=== PATIENT | female | born 1975 | race Caucasian/White ===

== ENCOUNTER 2020-07-11 13:18 | Emergency (ER) | payer OTHER ==
[2020-07-11 13:52] VITALS: BP 146/98; PULSE 59
[2020-07-11] MEDS ORDERED: Lidocaine 1% 10 ML MDV INJECT ONE (14:14)
[2020-07-11] MEDS ORDERED: Diphtheria,Pertussis(Acell),Tetanus Vaccine 0.5 ML Syringe IM ONE (14:19)
--- NOTE | 2020-07-11 14:19 | EDM.PDOC ---
ED HPI GENERAL MEDICAL PROBLEM - General Chief Complaint: Lower Extremity Injury/Pain Stated Complaint: FISH HOOK STUCK IN TOE Time Seen by Provider: 07/11/20 13:57 Source of Information: Reports: Patient, RN Notes Reviewed History Limitations: Reports: No Limitations - History of Present Illness INITIAL COMMENTS - FREE TEXT/NARRATIVE: Patient is a 44-year-old female who presents to the ED for evaluation of a fishhook stuck in her left great toe. At around 1 PM today patient was in a house, and there was a fishhook in the carpet, and it got embedded into her left great toe near the nail bed. She does remember the last time she has had any sort of tetanus vaccine. She denies any other sick-like symptoms, fever/chills, cough some shortness of breath, nausea/vomiting/diarrhea. She is not complaining of any numbness or tingling distal to the injury. Left Toe-Hailux Pain Score (Numeric/FACES): 5 - Related Data Allergies Allergy/AdvReac Type Severity Reaction Status Date / Time No Known Allergies Allergy Verified 03/01/16 16:51 Home Meds: Home Meds hydroCHLOROthiazide [Hydrochlorothiazide] 12.5 mg PO DAILY 07/11/20 [History] Past Medical History - Past Health History Medical/Surgical History: Denies Medical/Surgical History Cardiovascular History: Reports: Hypertension [employer] History: Reports: Dysfunctional Uterine Bleeding, - Past Surgical History Female Surgical History: Reports: Breast Reduction, D&C Social & Family History - Tobacco Use Smoking Status *Q: Never Smoker - Caffeine Use Caffeine Use: Reports: Coffee, Tea - Recreational Drug Use Recreational Drug Use: No Review of Systems - Review of Systems Review Of Systems: Comprehensive ROS is negative, except as noted in HPI. ED EXAM, GENERAL - Physical Exam Exam: See Below Exam Limited By: No Limitations General Appearance: Alert, WD/WN, No Apparent Distress Respiratory/Chest: No Respiratory Distress, Lungs Clear, Normal Breath Sounds, No Accessory Muscle Use, Chest Non-Tender Cardiovascular: Normal Peripheral Pulses, Regular Rate, Rhythm, No Murmur Peripheral Pulses: 2+: Dorsalis Pedis (L), Dorsalis Pedis (R) Extremities: Normal Range of Motion, Normal Capillary Refill, Other ([employer] stuck in left great toe, on the medial portion. There is approximately about three quarters of the fishhook that is sticking out of the left great toe, the suad is embedded within the medial left great toe.) Neurological: Alert, Oriented, Normal Cognition, No Motor/Sensory Deficits Psychiatric: Normal Affect, Normal Mood Skin Exam: Warm, Dry, Normal Color, No Rash ED TRAUMA EXTREMITY PROCEDURES - Foreign Body Removal Indication:: Fish hook stuck in medial Left great toe Consent Obtained: Patient Performing Doctor:: Karen Phillip V Anesthesia Type: Local (1% lidocaine 1ML) Findings:: the toe was cleaned with chlora-prep swab and numbed with 1% lidocaine. The fish hook was advanced to allow the suad to be visualized, and then the suad was removed and the fish hook was taken out of the patient's toe without complication. Complications:: No Course - Vital Signs Last Recorded V/S: Last Vital Signs Temp 98.8 F 07/11/20 13:50 Pulse 59 L 07/11/20 13:50 Resp 20 07/11/20 13:50 BP 146/98 H 07/11/20 13:50 Pulse Ox 97 07/11/20 13:50 - Orders/Labs/Meds Orders: Active Orders 24 hr Category Date Time Status Vaccines to be Administered [RC] PER UNIT ROUTINE Care 07/11/20 14:19 Active Meds: Medications Discontinued Medications Generic Name Dose Route Start Last Admin Trade Name Fresteven PRN Reason Stop Dose Admin Diphtheria/Tetanus/Acell Pertussis 0.5 ml 07/11/20 14:19 07/11/20 15:40 Adacel IM 07/11/20 14:20 0.5 ml .ONCE ONE Administration Lidocaine HCl 10 ml 07/11/20 14:14 07/11/20 15:41 Xylocaine 1% INJECT 07/11/20 14:15 10 ml ONETIME ONE Administration Departure - Departure Time of Disposition: 15:29 Disposition: Home, Self-Care 01 Condition: Good Clinical Impression: Fish hook injury of left lower leg Qualifiers: Encounter type: initial encounter Qualified Code(s): S89.92XA - Unspecified injury of left lower leg, initial encounter - Discharge Information *PRESCRIPTION DRUG MONITORING PROGRAM REVIEWED*: No *COPY OF PRESCRIPTION DRUG MONITORING REPORT IN PATIENT ARMEN: No Referrals: Jia Sheridan PA-C [Primary Care Provider] - Forms: ED Department Discharge Additional Instructions: You were evaluated in the ER today for the fishhook stuck in your left great toe. The area was numbed up, and the fishhook was removed successfully. You were updated with your tetanus booster today's visit. Please keep the wound clean and dry, watch for any signs of infection like redness, swelling, drainage from the wound site. Please return to the ER at any time if symptoms change or worsen. Sepsis Event Note (ED) - Evaluation Sepsis Screening Result: No Definite Risk - Focused Exam Vital Signs: Vital Signs Temp Pulse Resp BP Pulse Ox 07/11/20 13:50 98.8 F 59 L 20 146/98 H 97 - My Orders Last 24 Hours: My Active Orders 07/11/20 14:19 Vaccines to be Administered [RC] PER UNIT ROUTINE - Assessment/Plan Last 24 Hours: My Active Orders 07/11/20 14:19 Vaccines to be Administered [RC] PER UNIT ROUTINE
== END 2020-07-11 16:12 | disposition home or self-care (01) ==
LOC: JD.ED 13:18
DX: S90.452A Superficial foreign body, left great toe, initial encounter (principal); I10 Essential (primary) hypertension; Z23 Encounter for immunization; Z79.899 Other long term (current) drug therapy; W45.8XXA Other foreign body or object entering through skin, initial encounter; Y92.009 Unspecified place in unspecified non-institutional (private) residence as the place of occurrence of the external cause
CPT/HCPCS: 90471; 90715; 99283; J2001; 99282

== ENCOUNTER 2023-02-14 00:47 | Inpatient (IN) | payer OTHER ==
[2023-02-14] MEDS ORDERED: Ondansetron 4 MG/2 ML SDV IVPUSH ONE (00:59)
[2023-02-14] MEDS ORDERED: Sodium Chloride 0.9% 10 ML Syringe FLUSH PRN (00:59)
[2023-02-14] MEDS ORDERED: Sodium Chloride 0.9% 1,000 ML IV SCH (01:00)
[2023-02-14] MEDS ORDERED: HYDROmorphone 0.5 MG/0.5 ML Syringe IM ONE (01:18)
[2023-02-14 01:25] LABS: BASOPHILS ABSOLUTE AUTO 0.03 K/mm3 (0.01-0.08); BASOPHILS PERCENT AUTO 0.3 % (0.1-1.2); EOSINOPHILS ABSOLUTE AUTO 0.12 K/mm3 (0.04-0.36); EOSINOPHILS PERCENT AUTO 1.2 (0.7-5.8); HEMATOCRIT 44.3 % (34.1-44.9); HEMOGLOBIN 14.9 gm/dl (11.2-15.7); IMMATURE GRAN ABSOLUTE AUTO 0.01 K/mm3 (0.00-0.10); IMMATURE GRAN PERCENT AUTO 0.1 % (<=1.0); LYMPHOCYTES ABSOLUTE AUTO 2.02 K/mm3 (1.18-3.74); LYMPHOCYTES PERCENT AUTO 20.2 % (19.3-51.7); MEAN CORPUSCULAR HEMOGLOBIN 29.1 pg (25.6-32.2); MEAN CORPUSCULAR HGB CONC 33.6 g/dl (32.2-35.5); MEAN CORPUSCULAR VOLUME 86.5 fl (79.4-94.8); MEAN PLATELET VOLUME 9.7 fl (9.4-12.3); MONOCYTES ABSOLUTE AUTO 0.75 K/mm3 (0.24-0.36); MONOCYTES PERCENT AUTO 7.5 % (4.7-12.5); NEUTROPHILS ABSOLUTE AUTO 7.05 K/mm3 (1.56-6.13); NEUTROPHILS PERCENT AUTO 70.7 % (34.0-71.1); PLATELET COUNT,PLT 259 K/mm3 (182-369); RED BLOOD CELL COUNT 5.12 M/mm3 (3.98-5.22); WHITE BLOOD CELL COUNT,WBC 9.98 K/mm3 (3.98-10.04)
[2023-02-14] MEDS ORDERED: HYDROmorphone 0.5 MG/0.5 ML Syringe IVPUSH ONE ×2 (01:34→04:01)
[2023-02-14 01:37] LABS: APPEARANCE,URINE CLEAR (Clear); BILIRUBIN,URINE NEGATIVE (Negative); COLOR,URINE YELLOW (Yellow); GLUCOSE,URINE NEGATIVE (Negative); KETONES,URINE 1+ (Negative); LEUKOCYTE ESTERASE,URINE TRACE (Negative); NITRITE,URINE NEGATIVE (Negative); OCCULT BLOOD,URINE NEGATIVE (Negative); PH,URINE 8.5 (5.0-8.0); PROTEIN,URINE NEGATIVE (Negative); UROBILINOGEN,URINE 0.2 (0.2-1.0)
[2023-02-14 01:51] LABS: ALANINE AMINOTRANSFERASE,ALT 45 U/L (14-59); ALBUMIN 4.1 g/dl (3.4-5.0); ALKALINE PHOSPHATASE 76 U/L (46-116); ASPARTATE AMNIOTRANSFERASE,AST 28 U/L (15-37); BILIRUBIN TOTAL 0.5 mg/dL (0.2-1.0); BLOOD UREA NITROGEN,BUN 14 mg/dL (7-18); BUN/CREATININE RATIO 15.6 (14-18); C-REACTIVE PROTEIN <0.2 mg/dL (<1.0); CALCIUM 9.5 mg/dL (8.5-10.1); CARBON DIOXIDE,CO2 22 mEq/L (21-32); CHLORIDE,CL 103 mEq/L (98-107); CREATININE 0.9 mg/dL (0.55-1.02); EST CRCL DRUG DOSING (CG) 64.61 mL/min; ESTIMATED GFR 80 mL/min (>60); GLUCOSE RANDOM 112 mg/dL (70-99); LIPASE 140 U/L (73-393); MAGNESIUM 1.5 mg/dL (1.8-2.4); PROTEIN TOTAL,TP 8.1 g/dl (6.4-8.2); SODIUM,NA 138 mEq/L (136-145)
[2023-02-14 02:00] LABS: EPITHELIAL CELLS,URINE 0-5 /hpf (0-5); RBC,URINE NOT SEEN /hpf (0-5); WBC,URINE 0-5 /hpf (0-5)
[2023-02-14 02:01] LABS: AMORPHOUS SEDIMENT,URINE FEW /hpf (NOT SEEN); BACTERIA,URINE FEW /hpf (FEW); MUCUS,URINE NOT SEEN /hpf (FEW)
[2023-02-14] MEDS ORDERED: Lactated Ringers 1,000 ML IV ONE ×2 (03:50→14:45)
[2023-02-14] MEDS ORDERED: Piperacillin/Tazobactam 3.375 GM in Sodium Chloride 0.9% 100 ML IV ONE (03:59)
[2023-02-14] MEDS ORDERED: Naloxone 0.4 MG/ML SDV IVPUSH PRN (06:24)
[2023-02-14] MEDS ORDERED: Ondansetron 4 MG/2 ML SDV IVPUSH PRN (06:29)
[2023-02-14] MEDS ORDERED: D5 1/2 NS w/ 20 mEq/L KCl 1,000 ML IV SCH (06:30)
[2023-02-14] MEDS: Potassium Chloride 10 MEQ in Premix Bag 1 BAG IV SCH ×4 (06:51→10:47)
[2023-02-14] MEDS: HYDROmorphone 0.5 MG/0.5 ML Syringe IVPUSH PRN ×2 (06:56→09:36)
[2023-02-14] MEDS ORDERED: Piperacillin/Tazobactam 3.375 GM in Sodium Chloride 0.9% 100 ML IV SCH (10:00)
[2023-02-14] MEDS ORDERED: Piperacillin/Tazobactam 4.5 GM in Sodium Chloride 0.9% 100 ML IV SCH (10:00)
[2023-02-14] MEDS ORDERED: Ketorolac 30 MG/ML SDV IVPUSH PRN ×2 (10:15→10:19)
[2023-02-14] MEDS ORDERED: Lidocaine 1% with EPINEPHrine 1:100,000 20 ML MDV ONE (13:32)
[2023-02-14] MEDS ORDERED: Bupivacaine 0.5%/EPINEPHrine 1:200,000 50 ML MDV ONE (13:32)
[2023-02-14] MEDS ORDERED: Lidocaine 1% 4 ML ONE (13:41)
[2023-02-14] MEDS ORDERED: Rocuronium 50 MG/5 ML Vial ONE ×2 (13:41→14:34)
[2023-02-14] MEDS ORDERED: fentaNYL 100 MCG/2 ML SDV ONE (13:41)
[2023-02-14] MEDS ORDERED: Propofol 200 MG/20 ML SDV ONE ×2 (13:41→14:23)
[2023-02-14] MEDS ORDERED: Dexamethasone 4 MG/ML 5 ML MDV ONE (14:15)
[2023-02-14] MEDS ORDERED: Ondansetron 4 MG/2 ML SDV ONE (14:15)
[2023-02-14] MEDS ORDERED: Ketorolac 30 MG/ML SDV ONE (14:15)
[2023-02-14] MEDS ORDERED: ceFAZolin 2 GM Vial ONE (14:17)
[2023-02-14] MEDS ORDERED: ePHEDrine 50 MG/ML SDV ONE (14:17)
[2023-02-14] MEDS ORDERED: HYDROmorphone 0.5 MG/0.5 ML Syringe ONE ×2 (14:24→14:38)
[2023-02-14] MEDS ORDERED: Sugammadex Sodium 200 MG/2 ML VIAL ONE (14:38)
[2023-02-14] MEDS ORDERED: fentaNYL 100 MCG/2 ML SDV IVPUSH PRN (15:42)
[2023-02-14] MEDS ORDERED: HYDROmorphone 0.5 MG/0.5 ML Syringe IVPUSH PRN (15:42)
[2023-02-14 17:15] VITALS: BP 127/72
[2023-02-14 18:53] VITALS: PULSE 86
== END 2023-02-14 18:30 | disposition home or self-care (01) | DRG 342 ==
LOC: JD.ED 00:47 → JD.MS 04:21
PROVIDERS: ADMIT Surgery; ATTEND Surgery
PROC: 0DTJ4ZZ Resection of Appendix, Percutaneous Endoscopic Approach (ICD-10-PCS; principal; 2023-02-14)
DX: K35.30 Acute appendicitis with localized peritonitis, without perforation or gangrene (principal); E87.20 Acidosis, unspecified; E87.5 Hyperkalemia; I10 Essential (primary) hypertension; E87.6 Hypokalemia; E83.42 Hypomagnesemia; Z98.890 Other specified postprocedural states
CPT/HCPCS: 36415; 74177; 74177-26; 80053; 81001; 83605; 83690; 83735; 84702; 85025; 86140; 96361; 96365; 96375; 96376; 99285-25; J0690; J1100; J1170; J1885; J2405; J2543; J2704; J3010; J3480; J3490; J7030; J7120

== ENCOUNTER 2024-12-07 16:14 | Emergency (ER) | payer OTHER ==
[2024-12-07] MEDS: Lactated Ringers 1,000 ML IV ONE (18:01)
[2024-12-07] MEDS: Ondansetron 4 MG/2 ML SDV IVPUSH ONE (18:01)
[2024-12-07 19:01] VITALS: BP 133/96; PULSE 87
== END 2024-12-07 19:04 | disposition home or self-care (01) ==
LOC: JD.ED 16:14
DX: K52.9 Noninfective gastroenteritis and colitis, unspecified (principal); I10 Essential (primary) hypertension; Z79.899 Other long term (current) drug therapy
CPT/HCPCS: 87428; 96361; 96374; 99284; J2405; J7120; 99283

== ENCOUNTER 2025-03-01 23:16 | Emergency (ER) | payer OTHER ==
[2025-03-01 23:41] LABS: BASOPHILS ABSOLUTE AUTO 0.1 K/mm3 (0.0-0.2); BASOPHILS PERCENT AUTO 0.9 % (0.0-1.0); EOSINOPHILS ABSOLUTE AUTO 0.2 K/mm3 (0.0-0.4); EOSINOPHILS PERCENT AUTO 3.2 % (0.0-6.0); HEMATOCRIT 46.4 % (37.0-47.0); HEMOGLOBIN 14.9 gm/dl (12.0-16.0); IMMATURE GRAN ABSOLUTE AUTO 0.01 K/mm3 (0.00-0.05); IMMATURE GRAN PERCENT AUTO 0.1 % (0.0-0.4); LYMPHOCYTES ABSOLUTE AUTO 3.2 K/mm3 (1.0-4.8); LYMPHOCYTES PERCENT AUTO 46.2 % (24.0-44.0); MEAN CORPUSCULAR HEMOGLOBIN 28.7 pg (28.0-32.0); MEAN CORPUSCULAR HGB CONC 32.1 g/dl (32.0-36.0); MEAN CORPUSCULAR VOLUME 89.2 fl (83.0-99.0); MONOCYTES ABSOLUTE AUTO 0.6 K/mm3 (0.0-0.8); MONOCYTES PERCENT AUTO 9.3 % (0.0-8.0); NEUTROPHILS ABSOLUTE AUTO 2.8 K/mm3 (1.8-7.7); NEUTROPHILS PERCENT AUTO 40.3 % (41.0-71.0); PLATELET COUNT,PLT 249 K/mm3 (150-400); WHITE BLOOD CELL COUNT,WBC 6.88 K/mm3 (3.9-11.3)
[2025-03-01 23:52] LABS: A/G RATIO 1.1 (1-2); ANION GAP 12.6 (5-15); BILIRUBIN TOTAL 0.3 mg/dL (0.2-1.0); BUN/CREATININE RATIO 28.8 (14-18); CALCIUM 9.5 mg/dL (8.5-10.1); CREATININE 0.8 mg/dL (0.55-1.02); EST CRCL DRUG DOSING (CG) 77.38 mL/min; PROTEIN TOTAL,TP 7.6 g/dl (6.4-8.2)
[2025-03-01] MEDS: Sodium Chloride 0.9% 10 ML Syringe FLUSH PRN (23:52)
[2025-03-01] MEDS: Atropine 1% Ophth Soln 5 ML Bottle EYEBOTH ONE (23:52)
[2025-03-01] MEDS: Tropicamide 1% Ophth Soln 15 ML Bottle EYEBOTH ONE (23:52)
[2025-03-01 23:58] LABS: POTASSIUM,K 3.6 mEq/L (3.5-5.1)
[2025-03-02 01:05] VITALS: BP 141/94; PULSE 62
== END 2025-03-02 01:06 | disposition home or self-care (01) ==
LOC: JD.ED 23:16
DX: H53.8 Other visual disturbances (principal); H35.61 Retinal hemorrhage, right eye; I10 Essential (primary) hypertension; Z79.899 Other long term (current) drug therapy
CPT/HCPCS: 36415; 80053; 82947; 85025; 93005; 99284; A9270; 93010